=== PATIENT | female | born 1990 | race Caucasian/White ===

== ENCOUNTER → 2017-04-19 | Outpatient (CLI) | payer OTHER ==
--- NOTE | 2017-04-19 19:17 | REP ---
Clinical: Pelvic pain . Technique: Transabdominal pelvic ultrasound followed by transvaginal examination for better evaluation of the endometrium and adnexa with color Doppler evaluation of the ovaries. Findings: Bladder is unremarkable and measures 3.5 x 1.4 x 4.4 cm . Normal anteverted uterus measures 9.4 x 4.5 x 6.6 cm. The endometrial complex measures 13.6 mm thickness. No discrete uterine or endometrial abnormalities are appreciated. Trace endocervical fluid is nonspecific and likely physiologic. Bilateral ovaries are normal in appearance and vascularity without evidence for torsion. Right ovary measures 3.3 x 1.8 x 2.5 cm ; R I = 0.60 . Left ovary measures 3.0 x 1.7 x 2.5 cm ; R I = 0.59 . No pelvic fluid or adnexal mass lesion Impression: 1. Normal pelvic ultrasound. No torsion. Signed by Jimmy Hayes MD 04/19/2017 07:09 P
== END ==
LOC: M RAD 18:01
PROVIDERS: ATTEND Nurse Practitioner Women's Health
DX: R10.2 Pelvic and perineal pain (principal); N92.5 Other specified irregular menstruation

== ENCOUNTER → 2017-10-04 | Outpatient (CLI) | payer OTHER | LOC: M LRY 13:13 | DX: S49.91XA Unspecified injury of right shoulder and upper arm, initial encounter (principal); W18.30XA Fall on same level, unspecified, initial encounter; Y92.009 Unspecified place in unspecified non-institutional (private) residence as the place of occurrence of the external cause ==